=== PATIENT | male | born 1955 | race Caucasian/White ===

== ENCOUNTER → 2017-12-26 | Day surgery (SDC) | payer MEDICARE ==
[~2017-12-26] MED LIST: LIDOCAINE 1% PF 2 ML VIAL. ID; MORPHINE SULFATE 4 MG/ML DISP.SYRIN. IV; ONDANSETRON PF 4 MG/2 ML VIAL. IV; PROCHLORPERAZINE 10 MG/2 ML VIAL. IV; PROPOFOL 20 ML IV; fentaNYL PF VIAL 100 MCG/2 ML VIAL IV
[2017-12-26] MEDS: IV RINGERS,LACTATED 1000ML 1,000 ML IV (12:00)
== END | disposition home or self-care (01) ==
LOC: ENDOS 11:29
DX: K29.50 Unspecified chronic gastritis without bleeding (principal); K31.7 Polyp of stomach and duodenum; K20.9 Esophagitis, unspecified; I10 Essential (primary) hypertension; M19.90 Unspecified osteoarthritis, unspecified site; F10.21 Alcohol dependence, in remission; F17.210 Nicotine dependence, cigarettes, uncomplicated; Z90.81 Acquired absence of spleen
CPT/HCPCS: 43239; 88305; J2704

== ENCOUNTER 2018-02-27 11:10 | Day surgery (SDC) | payer MEDICARE ==
[~2018-02-27 11:10] MED LIST changes: +EPINEPHrine VIAL 30 MG/30 ML VIAL; +MORPHINE SULFATE 2 MG/ML DISP.SYRIN. IV; -MORPHINE SULFATE 4 MG/ML DISP.SYRIN. IV; -PROPOFOL 20 ML IV
[2018-02-27] MEDS: IV RINGERS,LACTATED 1000ML 1,000 ML IV ×2 (12:10→14:55)
[2018-02-27] MEDS ORDERED: DEXAMETHASONE SOD PHOS 20 MG/5 ML VIAL. (12:13)
[2018-02-27] MEDS ORDERED: fentaNYL PF VIAL 100 MCG/2 ML VIAL (12:13)
[2018-02-27] MEDS ORDERED: FAMOTIDINE 20 MG/2 ML VIAL (12:13)
[2018-02-27] MEDS ORDERED: LIDOCAINE 2% PF Vial for OR 5 ML VIAL. (12:13)
[2018-02-27] MEDS ORDERED: MIDAZOLAM HCL/PF 2 MG/2 ML VIAL. (12:13)
[2018-02-27] MEDS ORDERED: ONDANSETRON PF 4 MG/2 ML VIAL. (12:13)
[2018-02-27] MEDS ORDERED: PROPOFOL 0 ML IV (12:13)
[2018-02-27] MEDS ORDERED: IV RINGERS,LACTATED 1000ML 1,000 ML IV (12:15)
[2018-02-27] MEDS ORDERED: PROPOFOL 20 ML IV ×2 (13:56→15:35)
[2018-02-27] MEDS ORDERED: PHENYLEPHRINE in 0.9% NACL PF 1 MG/10 ML SYRINGE. IV (14:07)
[2018-02-27] MEDS ORDERED: LIDOCAINE 4% KIT 4 ML SOLUTION. TP (14:25)
[2018-02-27] MEDS ORDERED: SEVOFLURANE 61 TO 120 MINUTES. IH ×2 (14:28→15:34)
[2018-02-27] MEDS: fentaNYL PF VIAL 100 MCG/2 ML VIAL IV (15:10)
[2018-02-27] MEDS: oxyCODONE ORAL SOLUTION 5 MG/5 ML SOLUTION PO (15:43)
[2018-02-27] MEDS ORDERED: oxyCODONE ORAL SOLUTION 5 MG/5 ML SOLUTION PO (16:00)
== END 2018-02-27 16:24 | disposition home or self-care (01) ==
LOC: SURG 11:10
DX: D14.1 Benign neoplasm of larynx (principal); J38.3 Other diseases of vocal cords; Z87.891 Personal history of nicotine dependence; Z98.890 Other specified postprocedural states; K76.9 Liver disease, unspecified; I10 Essential (primary) hypertension; M19.90 Unspecified osteoarthritis, unspecified site; K74.60 Unspecified cirrhosis of liver; Z86.19 Personal history of other infectious and parasitic diseases
CPT/HCPCS: 31526; 88305; 88331; A7015; J0171; J0690; J1100; J2250; J2370; J2405; J2704; J3010; S0028